=== PATIENT | male | born 1980 | race Caucasian/White ===

== ENCOUNTER 2017-06-11 15:09 | Emergency (ER) | payer OTHER ==
[~2017-06-11] VITALS: Ht 170.2 cm; Wt 56.0 kg
[2017-06-11 15:22] VITALS: Ht 170.2 cm; Wt 56.0 kg
[2017-06-11] MEDS ORDERED: ASCO100T PO (15:48)
[2017-06-11] MEDS ORDERED: AMOX875T PO (16:02)
--- NOTE | 2017-06-11 16:05 | EMERGENCY ROOM VISIT NOTE ---
ED Visit Note First contact with patient: 15:27 CHIEF COMPLAINT: Sore throat HISTORY OF PRESENT ILLNESS: The 36 year old male patient reports increasing pain in the throat over the past 3 days, gradual in onset, worse with swallowing. No fever or chills until today. The patient states he does have a subjective fever today, but did not measure his temperature. The patient does have an associated headache, but denies any cough. No rash. Denies any posterior neck pain or stiffness, but does complain of swollen lymph nodes in his anterior neck and below his jaw laterally. No difficulty breathing. Symptoms came on gradually. There has been no chest pain, no abdominal pain, no nausea or vomiting. REVIEW OF SYSTEMS: A complete 6 point review of systems was reviewed with the patient with pertinent positives and negatives as per history of present illness. All else were negative. PMH: The patient is healthy; there is no significant medical or surgical history. MEDS: None ALLERGIES: None. SOCIAL HISTORY: Patient lives locally with family. He denies drug, alcohol, tobacco use. The patient states he has had no recent sexual encounters, and has not had oral sex. PHYSICAL EXAM: VITALS: Vitals are noted on the nurse's note and reviewed by myself. Oral temperature 37C. Vital signs stable. GENERAL: This is a 36-year-old male, in no acute distress, nondiaphoretic, well- developed well-nourished. SKIN: The skin was without rashes, erythema, edema, or bruising. There is no tenting of the skin. Capillary reflex less than 2 seconds. HEAD: Normocephalic atraumatic. EARS: External auditory canals clear, tympanic membranes pearly carmichael without erythema or effusion bilaterally. EYES: Pupils equal round and reactive to light and accommodation. Conjunctivae without injection, sclerae without icterus. Extraocular movements intact. NOSE: Patent, turbinates without inflammation or discharge. No sinus tenderness. MOUTH: Mucous membranes moist. Tonsils are not enlarged. Pharynx mild erythema on the right and an ulceration, approximately 2 mm in diameter. No pustules or abscess noted. Uvula midline. Airway patent. Tongue does not deviate. NECK: Supple without nuchal rigidity. No lymphadenopathy. No thyromegaly. Cervical spine is nontender. No JVD. HEART: Regular rate and rhythm without murmurs gallops or rubs. LUNGS: Clear to auscultation bilaterally without wheezes, rales or rhonchi. No dullness to percussion. No retractions or accessory muscle use. MUSCULOSKELETAL: No muscle atrophy, erythema, or edema noted. Full range of motion without joint tenderness in all extremities. No tenderness to palpation. Normal gait. Strength 5/5 throughout. NEURO: Patient was alert and oriented to person place and time. Normal sensation to light and sharp touch. No focal neurological deficits. ED COURSE/MDM: The patient was seen and evaluated as above. Based on his symptoms and erythema with ulceration in the back of the pharynx, I do feel that treating the patient with antibiotics is appropriate at this time. Rapid strep test was negative, however culture will be obtained as well as viral culture for HSV. The patient was started on Augmentin. He did request the name of an ear nose and throat provider in the area, so was given the name of Dr. Hill. The patient was discharged home in good condition. DIFFERENTIAL DIAGNOSIS: Strep pharyngitis, HSV, ulcer, pharyngeal abscess, peritonsillar abscess, malignancy, and others DIAGNOSIS: Acute pharyngitis, pharyngeal ulcer DISCHARGE INSTRUCTIONS & TREATMENT: You were seen in the emergency department today for a sore throat. While your rapid strep test was negative, I would like to try you, as the throat does appear to have an ulceration in it. Strep and viral cultures are pending. Avoid sexual contact or contact with others where saliva may be transferred until culture reports are back. Augmentin 1 tab BID x10 days. All antibiotics have the potential to cause diarrhea. A few develop a rash while on this medication stop the medication and see your family physician for evaluation Ibuprofen(Motrin, Advil) may be used for fever or pain. Use 600mg every six hours as needed. Take with food. Avoid using more than 2400mg in a 24 hour period. Do not use 2400mg per day for more than three consecutive days without physician direction. Prolonged inappropriate use can lead to stomach upset or ulcers. (AND/OR) Acetaminophen(Tylenol) may be used for fever or pain. Use 1000mg every six hours as needed. Avoid using more than 3000mg in a 24 hour period. Use warm salt water gargles. And drink warm tea to help soothe your throat. Return to emergency department if symptoms of difficulty breathing, increased pain or difficulty swallowing, or symptoms do not respond to the case described. Current/Historical Medications Scheduled Amoxicillin & Pot Clavulanate (Augmentin 875-125 mg), 1 TAB PO BID Ascorbic Acid (Vitamin C), 1 TAB PO DAILY Allergies Coded Allergies: No Known Allergies (Unverified , 06/11/17) Vital Signs Date Time Temp Pulse Resp B/P (MAP) Pulse Ox O2 Delivery O2 Flow Rate FiO2 06/11/17 15:22 37.0 90 18 123/82 98 Laboratory Results Test 06/11/17 16:05 Departure Information Impression Primary Impression: Sore throat Additional Impression: Pharyngeal ulcer Dispostion Home / Self-Care Condition GOOD Prescriptions Amoxicillin & Pot Clavulanate (Augmentin 875-125 mg) 1 Tab Tab 1 TAB PO BID for 10 Days, #20 TAB Prov: Lori Meng PA-C 06/11/17 Referrals No Doctor, Assigned (PCP) Patient Instructions ED Strep Pharyngitis [place], My [facility] Additional Instructions You were seen in the emergency department today for a sore throat. While your rapid strep test was negative, I would like to try you, as the throat does appear to have an ulceration in it. Strep and viral cultures are pending. Avoid sexual contact or contact with others where saliva may be transferred until culture reports are back. Augmentin 1 tab BID x10 days. All antibiotics have the potential to cause diarrhea. A few develop a rash while on this medication stop the medication and see your family physician for evaluation Ibuprofen(Motrin, Advil) may be used for fever or pain. Use 600mg every six hours as needed. Take with food. Avoid using more than 2400mg in a 24 hour period. Do not use 2400mg per day for more than three consecutive days without physician direction. Prolonged inappropriate use can lead to stomach upset or ulcers. (AND/OR) Acetaminophen(Tylenol) may be used for fever or pain. Use 1000mg every six hours as needed. Avoid using more than 3000mg in a 24 hour period. Use warm salt water gargles. And drink warm tea to help soothe your throat. Return to emergency department if symptoms of difficulty breathing, increased pain or difficulty swallowing, or symptoms do not respond to the case described. Problem Qualifiers
[2017-06-11 16:23] VITALS: BP 111/70; PULSE 75; TEMP 37; O2SAT 98
[2017-06-16 14:18] LABS: HERPES SIMPLEX CULT SOURCE OTHER-PHANYNX; HERPES SIMPLEX VIRUS CULT NOT ISOLATED (NOT ISOLATED)
== END 2017-06-11 16:24 | disposition home or self-care (01) ==
LOC: C.EDB 15:11 → C.EDD 16:24
DX: J02.9 Acute pharyngitis, unspecified (principal); J39.2 Other diseases of pharynx